=== PATIENT | female | born 1985 | race Caucasian/White ===

== ENCOUNTER 2020-11-17 16:17 | Emergency (ER) | payer MEDICAID ==
[2020-11-17 16:35] VITALS: BP 111/71
--- NOTE | 2020-11-17 17:58 | ED Physician Documentation ---
PD HPI HEENT - Stated complaint Stated Complaint: RT EAR PAIN - Chief complaint Chief Complaint: Heent - History obtained from History obtained from: Patient - Additional information Additional information: Comes emergency department chief complaint of right ear pain since going swimming 3 days ago. She states that she keeps feeling as though there is fluid in her ear and it has been hurting more and more. Patient states she has been trying to rinse her ear out but cannot seem to get anything out. No other complaints at this time. No alteration in hearing. No history of otitis externa previously. No fevers or chills. Review of Systems Ten Systems: 10 systems reviewed and negative Constitutional: reports: Reviewed and negative Eyes: reports: Reviewed and negative Ears: reports: Ear pain Nose: reports: Reviewed and negative Throat: reports: Reviewed and negative Cardiac: reports: Reviewed and negative Respiratory: reports: Reviewed and negative GI: reports: Reviewed and negative : reports: Reviewed and negative Skin: reports: Reviewed and negative Musculoskeletal: reports: Reviewed and negative Neurologic: reports: Reviewed and negative Psychiatric: reports: Reviewed and negative Endocrine: reports: Reviewed and negative Immunocompromised: reports: Reviewed and negative PD PAST MEDICAL HISTORY - Present Medications Home Medications: Ambulatory Orders Medication Instructions Recorded Confirmed Ciproflox/Dexameth Otic Drops 4 drops OT BID #7.5 ml 11/17/20 [Ciprodex Otic Drops] HYDROcod/ACETAM 5/325 [Hudson 5/325] 1 - 2 tablet PO Q6H PRN #7 tablet 11/17/20 Venlafaxine ER [Effexor ER] 225 mg PO DAILY 11/17/20 11/17/20 - Allergies Allergies/Adverse Reactions: Allergies Allergy/AdvReac Type Severity Reaction Status Date / Time No Known Drug Allergies Allergy Verified 11/17/20 16:33 PD ED PE NORMAL - Vitals Vital signs reviewed: Yes - General General: Alert and oriented X 3, No acute distress - HEENT HEENT: Atraumatic, PERRL, EOMI, Moist mucous membranes, Other (Moderate cerumen right ear canal. Same and mild edema noted. No obvious fluid.) - Neck Neck: Supple, no meningeal sign - Respiratory Respiratory: No respiratory distress - Derm Derm: Normal color, Warm and dry, No rash - Extremities Extremities: No deformity - Neuro Neuro: Alert and oriented X 3 - Psych Psych: Normal mood, Normal affect Results - Vitals Vitals: Vital Signs - 24 hr 11/17/20 16:32 Temperature 36.3 C L Heart Rate 69 Respiratory 16 Rate Blood Pressure 111/71 O2 Saturation 100 Oxygen O2 Source Room air PD MEDICAL DECISION MAKING - ED course Complexity details: considered differential, d/w patient ED course: I discussed with the patient that she appears to have a mild case of otitis externa, and that she will need to keep her ear dry, other than the drops which I will prescribe. She is concerned about getting the wax out of her ear, but I do not feel this is a priority at this time. The cerumen does not appear impacted and may be removed after her otitis externa has resolved. We have discussed the usual indications for return. Departure - Departure Disposition: 01 Home, Self Care Clinical Impression: Otitis externa Qualifiers: Otitis externa type: swimmer's ear Chronicity: acute Laterality: right Qualified Code(s): H60.331 - Swimmer's ear, right ear Condition: Stable Instructions: ED Otitis Externa Prescriptions: Ciproflox/Dexameth Otic Drops [Ciprodex Otic Drops] 4 drops OT BID #7.5 ml HYDROcod/ACETAM 5/325 [Hudson 5/325] 1 - 2 tablet PO Q6H PRN #7 tablet PRN Reason: Pain
== END 2020-11-17 18:23 | disposition home or self-care (01) ==
LOC: ED 16:17
DX: H60.331 Swimmer's ear, right ear (principal)
CPT/HCPCS: 99282; 99284

== ENCOUNTER 2021-04-08 18:09 | Outpatient (CLI) | payer MEDICAID | END 2021-04-08 23:59 | disposition home or self-care (01) | LOC: LAB 18:09 | PROVIDERS: ATTEND Family Medicine | DX: R05.1 Acute cough (principal); Z20.822 Contact with and (suspected) exposure to COVID-19 | CPT/HCPCS: 87275; 87276 ==

== ENCOUNTER 2022-08-31 16:38 | Emergency (ER) | payer MEDICAID ==
[2022-08-31 16:47] VITALS: BP 113/59
[2022-08-31] MEDS ORDERED: diphenhydrAMINE INJ 50 MG/ML VIAL IVP STA (16:48)
--- NOTE | 2022-08-31 16:52 | ED Physician Documentation ---
History of Present Illness - Stated complaint Stated Complaint: ALLERGIC REACTION - Chief complaint Chief Complaint: General - History obtained from History obtained from: Patient - Additonal information Additional information: This is a 36-year-old female who had been using street fentanyl up until 2 days ago, then started Suboxone via a clinic today, presents stating that she feels like she is having a reaction to the Suboxone. She states that she feels like it sent her into withdrawals and she is extremely anxious, states she cannot lay still, she feels very odd all over, and has pain all over. She has not had any fever or chills, no chest pain or difficulty breathing, no nausea vomiting or diarrhea. She adamantly denies using any other narcotics today stating she only uses Suboxone. She previously was using about 9 blue tablets of fentanyl/oxy daily. Review of Systems Constitutional: reports: Reviewed and negative Ears: reports: Reviewed and negative Nose: reports: Reviewed and negative Throat: reports: Reviewed and negative Cardiac: reports: Reviewed and negative Respiratory: reports: Reviewed and negative GI: reports: Diarrhea. denies: Abdominal Pain, Abdominal Swelling, Nausea, Vom iting, Constipation, Hematemesis, Bloody / black stool : reports: Reviewed and negative Neurologic: reports: Reviewed and negative Psychiatric: reports: Anxiety Endocrine: reports: Reviewed and negative PD PAST MEDICAL HISTORY - Past Medical History Past Medical History: Yes Other Past Medical History: fentanyl addiction - Present Medications Home Medications: Ambulatory Orders Medication Instructions Recorded Confirmed Ciproflox/Dexameth Otic Drops 4 drops OT BID #7.5 ml 11/17/20 [Ciprodex Otic Drops] HYDROcod/ACETAM 5/325 [[place]urel 5/325] 1 - 2 tablet PO Q6H PRN #7 tablet 11/17/20 Venlafaxine ER [Effexor ER] 225 mg PO DAILY 11/17/20 11/17/20 Gabapentin [Neurontin] 300 mg PO TID #30 08/31/22 Ondansetron Odt [Zofran] 4 mg TL Q6H PRN #10 tablet 08/31/22 cloNIDine [Catapres] 0.1 mg PO ONCE #10 tablet 08/31/22 - Allergies Allergies/Adverse Reactions: Allergies Allergy/AdvReac Type Severity Reaction Status Date / Time sumatriptan [From Imitrex] Allergy Unknown Verified 08/31/22 16:46 PD ED PE NORMAL - Vitals Vital signs reviewed: Yes - General General: Alert and oriented X 3, Well developed/nourished, Other (writhing around the bed, awake and alert answering questions but restless, anxious. ) - HEENT HEENT: Atraumatic, PERRL, EOMI, Moist mucous membranes, Pharynx benign - Neck Neck: Supple, no meningeal sign, No JVD - Cardiac Cardiac: RRR, No murmur - Respiratory Respiratory: No respiratory distress, Clear bilaterally - Abdomen Abdomen: Normal bowel sounds, Soft, Non tender, Non distended, Other (several diarrhea episodes here) - Derm Derm: Normal color, Warm and dry, No rash - Extremities Extremities: No deformity, No tenderness to palpate, Normal ROM s pain, No edema - Neuro Neuro: Alert and oriented X 3 Eye Opening: Spontaneous Motor: Obeys Commands Verbal: Oriented GCS Score: 15 Results - Vitals Vitals: Vital Signs - 24 hr 08/31/22 16:41 Temperature 35.6 C L Heart Rate 82 Respiratory 24 Rate Blood Pressure 113/59 L O2 Saturation 98 Oxygen O2 Source Room air - Labs Labs: Laboratory Tests 08/31/22 08/31/22 16:57 16:57 WBC 7.3 RBC 4.23 Hgb 13.2 Hct 39.3 MCV 92.9 MCH 31.2 H MCHC 33.6 RDW 12.3 Plt Count 252 MPV 9.7 Neut # (Auto) 4.7 Lymph # (Auto) 2.1 Lander # (Auto) 0.4 Eos # (Auto) 0.0 Baso # (Auto) 0.0 Absolute Nucleated RBC 0.00 Nucleated RBC % 0.0 Sodium 139 Potassium 3.5 Chloride 105 Carbon Dioxide 22 Anion Gap 12.0 BUN 14 Creatinine 0.5 Estimated GFR (MDRD) 138 Glucose 129 H Calcium 11.2 H Total Bilirubin 0.5 AST 51 H ALT 92 H Alkaline Phosphatase 157 H Total Protein 8.0 Albumin 4.4 Globulin 3.6 Albumin/Globulin Ratio 1.2 Lipase 43 PD Medical Decision Making - ED course Complexity details: reviewed results, re-evaluated patient, considered differential, d/w patient ED course: 36 yo F presented after starting suboxone and now experiencing symptoms of opiate withdrawal. It is possible she started the suboxone too soon, as she had not yet been in withdrawal when she started and may still have had some fentanyl in her system. She adamantly denies using any opiate products today. She is restless, writhing in the pain, and very anxious here and had several episodes of diarrhea here but her physical exam was otherwise reassuring, her vital signs are stable. We did obtain labs including CBC and CMP which are stable and not suggestive of acute infection. She did not provide a urine sample. She was given clonidine, Benadryl, Zofran and loperamide with some improvement in her symptoms but she was still having symptoms of opiate withdrawal. She did receive a total of 2 mg of IV Ativan as she was extremely anxious and writhing with withdrawal symptoms. I do not suspect other etiology of pain, I do not suspect an allergic reaction, I suspect this is related to acute opiate withdrawal secondary to Suboxone use. I discussed with patient and her that she is going through withdrawal and she can treat supportively And she was given gabapentin, Zofran, loperamide for her symptoms or she may go to detox center at [facility] And she was given information and a phone number for this facility. The patient is stable for discharge home at this time that she continues to have withdrawal symptoms, I discussed anticipated course of her symptoms as well as return precautions. Departure - Departure Disposition: 01 Home, Self Care Clinical Impression: Opiate withdrawal Condition: Good Instructions: ED Withdrawal Narcotic Prescriptions: cloNIDine [Catapres] 0.1 mg PO ONCE #10 tablet Gabapentin [Neurontin] 300 mg PO TID #30 Ondansetron Odt [Zofran] 4 mg TL Q6H PRN #10 tablet PRN Reason: Nausea / Vomiting Comments: You are going through opiate withdrawal. This will get better with time but it will be an uncomfortable couple of days. You have been given some prescriptions to help with nausea and withdrawal symptoms. You can choose to go to monitored detox at [facility] in [place] if desired. The contact information there is: [address] [place] [address]
[2022-08-31] MEDS ORDERED: LOPERAMIDE 2 MG CAPSULE PO STA (17:08)
[2022-08-31] MEDS ORDERED: ONDANSETRON 4 MG/2 ML VIAL IVP STA (17:18)
[2022-08-31] MEDS ORDERED: cloNIDine 0.1 MG TABLET PO STA (17:23)
[2022-08-31] MEDS ORDERED: LORazepam 2 MG/ML VIAL IVP STA ×2 (17:23→18:18)
[2022-08-31 17:29] LABS: BASOPHILS % (AUTO) 0.4 %; EOSINOPHILS % (AUTO) 0.4 %; HCT - HEMATOCRIT 39.3 % (37.0-47.0); HGB - HEMOGLOBIN 13.2 g/dL (12.0-16.0); LYMPHOCYTES # (AUTO) 2.1 10^3/uL (1.5-3.5); LYMPHOCYTES % (AUTO) 29.2 %; MEAN CORPUSCULAR HEMOGLOBIN 31.2 pg (27.0-31.0); MEAN CORPUSCULAR HGB CONC 33.6 g/dL (32.0-36.0); MEAN CORPUSCULAR VOLUME 92.9 fL (81.0-99.0); MEAN PLATELET VOLUME 9.7 fL (7.9-10.8); MONOCYTES # (AUTO) 0.4 10^3/uL (0.0-1.0); MONOCYTES % (AUTO) 4.9 %; NEUTROPHILS # (AUTO) 4.7 10^3/uL (1.5-6.6); NEUTROPHILS % (AUTO) 64.8 %; PLT - PLATELET COUNT 252 10^3/uL (130-450); RED BLOOD COUNT 4.23 10^6/uL (4.20-5.40); RED CELL DISTRIBUTION WIDTH 12.3 % (12.0-15.0); WHITE BLOOD COUNT 7.3 x10^3/uL (4.8-10.8)
[2022-08-31 17:39] LABS: ALBUMIN 4.4 g/dL (3.2-5.5); ALBUMIN/GLOBULIN RATIO 1.2 (1.0-2.2); BILIRUBIN,TOTAL 0.5 mg/dL (0.2-1.0); CALCIUM 11.2 mg/dL (8.5-10.3); CREATININE 0.5 mg/dL (0.4-1.0); POTASSIUM 3.5 mmol/L (3.5-5.0)
== END 2022-08-31 18:48 | disposition home or self-care (01) ==
LOC: ED 16:38
DX: F11.23 Opioid dependence with withdrawal (principal)
CPT/HCPCS: 36415; 80053; 83690; 85025; 96374; 96375; 96376; 99283; 99284; A9270; J1200; J2060